=== PATIENT | male | born 1950 | race Caucasian/White ===

== ENCOUNTER 2019-03-14 06:33 | Day surgery (SDC) ==
[2019-03-07 09:03] LABS: HEMATOCRIT 45.8 % (42.0-52.0); HEMOGLOBIN 15.1 g/dL (14.0-18.0); MCH 30.1 PG (27-31); MCV 91.2 FL (81-99); MPV 9.7 FL (7.4-10.4); RBC 5.02 XMIL (4.7-6.1); RDW 13.7 % (11.5-14.5); WBC 6.98 X1000 (4.8-10.8)
[2019-03-07 09:11] LABS: INR 0.94; PROTIME 13.3 Seconds (11.0-16.0)
[2019-03-07 09:26] LABS: SODIUM 140 mmol/L (136-145)
[2019-03-07 09:27] LABS: AGAP 8; BUN 13 mg/dL (8-22); CALCIUM 9.3 mg/dL (8.8-10.2); CHLORIDE 100 mmol/L (98-107); COSMO 280; CREATININE 1.1 mg/dL (0.7-1.2); ESTIMATED GFR > 60; GLUCOSE 115 mg/dL (70-104); TCO2 32 mmol/L (25-35)
[2019-03-14] MEDS ORDERED: PEPCID ONE (07:02)
[2019-03-14] MEDS ORDERED: LR 1,000 ML ONE ×2 (07:02→10:02)
[2019-03-14] MEDS ORDERED: REGLAN ONE (07:02)
[2019-03-14] MEDS ORDERED: KEFZOL 1 GM/D5W 2 GM/100 ML IVPB ONE (07:02)
[2019-03-14] MEDS ORDERED: XYLOCAINE-MPF 2% ONE (07:14)
[2019-03-14] MEDS ORDERED: DIPRIVAN 1% ONE (07:14)
[2019-03-14] MEDS ORDERED: FENTANYL ONE (08:02)
[2019-03-14] MEDS ORDERED: ZOFRAN ONE (08:10)
[2019-03-14] MEDS ORDERED: DECADRON ONE (08:10)
[2019-03-14] MEDS ORDERED: NEO-SYNEPHRINE ONE (08:45)
[2019-03-14] MEDS ORDERED: SODIUM CHLORIDE 0.9% 10 ML ONE (08:45)
[2019-03-14] MEDS: MORPHINE ONE ×3 (09:55→10:37)
[2019-03-14] MEDS ORDERED: NS 1,000 ML ONE ×2 (10:02→10:03)
[2019-03-14] MEDS ORDERED: MORPHINE IV PRN (10:12)
[2019-03-14] MEDS ORDERED: LABETALOL IV PRN (10:15)
[2019-03-14] MEDS ORDERED: NORCO-5 PO PRN (10:15)
[2019-03-14] MEDS ORDERED: ZOFRAN IV PRN (10:15)
[2019-03-14] MEDS ORDERED: NORCO-10 PO PRN (10:15)
[2019-03-14] MEDS ORDERED: PHENERGAN PO PRN (10:15)
[2019-03-14] MEDS ORDERED: NS 1,000 ML IV SCH (10:15)
[2019-03-14] MEDS ORDERED: OFIRMEV 1000 MG/ISOTONIC SOLN 1,000 MG/100 ML BOTTLE IV PRN (11:00)
[2019-03-14] MEDS: NICODERM PATCH TD SCH (14:05)
[2019-03-14] MEDS: DITROPAN PO PRN (14:25)
[2019-03-14] MEDS: NORCO-7.5 PO PRN (14:25)
--- NOTE | 2019-03-14 14:30 | OPERATIVE NOTE ---
PROCEDURE DATE: 03/14/2019 PREOPERATIVE DIAGNOSES: 1. Gross hematuria. 2. Benign prostatic hypertrophy. POSTOPERATIVE DIAGNOSES: 1. Gross hematuria. 2. Benign prostatic hypertrophy. PROCEDURE PERFORMED: Bipolar transurethral resection of the prostate with the loop. SURGEON: Howard Horn M.D. ANESTHESIA: LMA. INDICATIONS: A 68-year-old male who was seen by me with history of urolithiasis. After undergoing ureteroscopy, he had significant bleeding related to his vascular prostate. He has a very large trilobar hypertrophy and pronounced median lobe. He was counseled on medical therapy versus surgical therapy, and wants to proceed with TURP. FINDINGS: Significant trilobar hypertrophy, adequate hemostasis at the conclusion of the case. DESCRIPTION OF PROCEDURE: After obtaining informed consent, the patient was brought to the operating room. Perioperative antibiotics and laryngeal mask anesthesia were administered. He was placed in the lithotomy position, prepped and draped in a sterile fashion. A 21-Beninese rigid cystoscope was used to gain access to the urethra and the bladder, which was examined in systematic fashion. He had the aforementioned significant trilobar hypertrophy with very vascular median lobe. His bladder had moderate trabeculations, no sizable diverticula, no bladder lesions, and no stone seen within the bladder lumen. I was able to see bilateral ureteral orifices. We then removed the cystoscope, and introduced a 25-Beninese rigid resectoscope with bipolar gyrus loop used. We cauterized and marked the location of the bilateral ureteral orifices. We then resected the adenoma, starting by addressing the median lobe to the level of the bladder neck. After that, I resected the adenoma from the bladder neck to the level of the verumontanum at 6 o'clock to the level of capsule depth-guajardo. We then resected the tissue in a clockwise and counterclockwise fashion. Ellik was used to evacuate the pieces. Repeat examination showed decent hemostasis, and no sizable residual pieces. The resectoscope was removed, and a 22-Beninese 3-way Coude Martins catheter was introduced. He was placed to light traction, and connected to continuous bladder irrigation. The patient was extubated and taken to the PACU for further recovery. ESTIMATED BLOOD LOSS: 30 mL. COMPLICATIONS: None. SPECIMENS: Prostate chips. DISPOSITION: To PACU and subsequently to the floor for observation, with Martins catheter to continuous bladder irrigation and light traction. cc: Howard Horn MD
[2019-03-14] MEDS: KEFZOL 2 GM/D5W 2 GM/50 ML IVPB IV SCH (16:19)
[2019-03-14 20:14] LABS: AGAP 11; BUN 12 mg/dL (8-22); CALCIUM 8.4 mg/dL (8.8-10.2); CHLORIDE 102 mmol/L (98-107); COSMO 280; CREATININE 1.1 mg/dL (0.7-1.2); ESTIMATED GFR > 60; GLUCOSE 241 mg/dL (70-104); POTASSIUM 4.6 mmol/L (3.5-5.1); SODIUM 136 mmol/L (136-145); TCO2 23 mmol/L (25-35)
[2019-03-14] MEDS ORDERED: MELATONIN PO SCH (21:00)
[2019-03-14] MEDS: ZANTAC PO SCH (22:02)
[2019-03-14] MEDS: COLACE PO SCH (22:03)
[2019-03-15] MEDS: KEFZOL 2 GM/D5W 2 GM/50 ML IVPB IV SCH ×2 (00:48→08:08)
[2019-03-15] MEDS: NORCO-7.5 PO PRN (05:15)
[2019-03-15 07:25] LABS: HEMATOCRIT 42.1 % (42.0-52.0); HEMOGLOBIN 14.6 g/dL (14.0-18.0); MCH 30.8 PG (27-31); MCHC 34.7 g/dL (33-37); MCV 88.8 FL (81-99); MPV 9.6 FL (7.4-10.4); RBC 4.74 XMIL (4.7-6.1); RDW 13.6 % (11.5-14.5); WBC 17.49 X1000 (4.8-10.8)
[2019-03-15 07:50] LABS: AGAP 10; BUN 12 mg/dL (8-22); CALCIUM 8.5 mg/dL (8.8-10.2); CHLORIDE 103 mmol/L (98-107); COSMO 277; CREATININE 1.1 mg/dL (0.7-1.2); ESTIMATED GFR > 60; GLUCOSE 121 mg/dL (70-104); POTASSIUM 4.1 mmol/L (3.5-5.1); SODIUM 138 mmol/L (136-145); TCO2 25 mmol/L (25-35)
[2019-03-15] MEDS: ZANTAC PO SCH (08:07)
[2019-03-15] MEDS: COLACE PO SCH (08:07)
[2019-03-15 08:09] VITALS: BP 136/79
[2019-03-15] MEDS: DITROPAN PO PRN (08:21)
[2019-03-15] MEDS ORDERED: PROZAC PO SCH (09:00)
[2019-03-15] MEDS ORDERED: COZAAR PO SCH (09:00)
[2019-03-15] MEDS ORDERED: PERIDEX MT SCH (09:00)
[2019-03-15] MEDS: NICODERM PATCH TD SCH (09:18)
== END 2019-03-15 12:02 | disposition home or self-care (01) ==
LOC: 4N 06:33 → OR 06:33
PROVIDERS: ATTEND Urology
PROC: UR.TURP (2019-03-14 07:54)
CPT/HCPCS: 80048; 85027; 85610; 85730; 88305; 88313; 94760; 94761; 94799; A9270; J0690; J1100; J2270; J2370; J2405; J3010; J7030; J7120